=== PATIENT | female | born 1970 | race Caucasian/White ===

== ENCOUNTER → 2016-04-21 | Outpatient (CLI) | payer MEDICARE ==
[~2016-04-21] MED LIST: CYTO25TA PO; EFFE150C PO; IBUP600T26 PO; LORT5TAB PO; NORC5TAB PO; PRIL20CA9 PO; SYNT175T2 PO; VENL150C43 PO; tylenol OR
== END ==
LOC: M RAD 07:10
PROVIDERS: ATTEND Family Medicine
DX: Z12.31 Encounter for screening mammogram for malignant neoplasm of breast (principal); F17.200 Nicotine dependence, unspecified, uncomplicated; Z53.8 Procedure and treatment not carried out for other reasons

== ENCOUNTER → 2016-05-04 | Outpatient (CLI) | payer MEDICARE ==
--- NOTE | 2016-05-04 15:57 | REPMRS ---
Patient History The patient states she had a clinical breast exam in Patient is postmenopausal and has history of other cancer at age 44. Family history of ovarian cancer in sister under age 50 and breast cancer in mother at age 50 or over. Taking unspecified hormones for 1 month. Digital Woman Screen Mammo: May 04, 2016 - Exam #: [id number] Bilateral CC and MLO view(s) were taken. Technologist: Rosa Rivera, Technologist Prior study comparison: March 04, 2015, digital woman screen mammo performed at [facility]. March 01, 2011, digital bilateral screening mammo performed at [facility]. FINDINGS: There are scattered fibroglandular densities. There has been no change in the appearance of the mammogram from the prior studies. There is a mild amount of scattered fibroglandular density which is fairly symmetric. There is no interval development of dominant mass, architectural distortion, or clustered microcalcification suggestive of malignancy. ASSESSMENT: BI-RADS/ACR category 1 mammogram. Negative. Recommendation Routine screening mammogram in 1 year (for women over age 40). This mammogram was interpreted with the aid of an FDA-approved computer-aided dectection system. Electronically Signed By: Serge Matthews MD 05/04/16 [id number]
== END | disposition home or self-care (01) ==
LOC: M WHC 14:34
PROVIDERS: ATTEND Family Medicine
DX: Z12.31 Encounter for screening mammogram for malignant neoplasm of breast (principal); Z78.0 Asymptomatic menopausal state; Z80.3 Family history of malignant neoplasm of breast; Z80.41 Family history of malignant neoplasm of ovary; Z92.29 Personal history of other drug therapy; Z85.9 Personal history of malignant neoplasm, unspecified

== ENCOUNTER 2016-06-15 21:48 | Emergency (ER) | payer MEDICARE ==
[~2016-06-15] VITALS: Ht 157.5 cm; Wt 87.1 kg
[2016-06-15] MEDS ORDERED: ESTR1TAB PO (22:42)
[2016-06-15] MEDS ORDERED: OMEP40CA2 PO (22:42)
[2016-06-16] MEDS ORDERED: HYDROmorphone HCL 1 MG/ML SYRINGE (J1170) IM ONE (01:15)
--- NOTE | 2016-06-16 02:00 | REPUSA ---
HISTORY: Left facial edema. COMPARISON: Not provided. TECHNIQUE: Multiple thin section helically-acquired axially-displayed and helically acquired coronall y displayed computed tomographic images of the face are obtained from the mandible through the fronta l sinuses, with images obtained at soft tissue and bone window. 2D reformatted images were performed. FINDINGS: Left perimandibular soft tissue edema and subcutaneous fat stranding. Adjacent lymphadenopathy the largest lymph node measuring 1.3 cm. Normal bony mineralization. No fractures. Normal orbits. Normal, clear paranasal sinuses. Normal oral and nasal cavities. Normal infratemporal fossa and deep parapharyngeal spaces with normal muscles of mastication. Normal parotid and submandibular glands. IMPRESSION: Left perimandibular cellulitis. Associated phlegmonous reaction. No drainable abscess formation. Adjacent lymphadenopathy. Thank you for your kind referral of this patient
[2016-06-16] MEDS ORDERED: AMPICILLIN SOD/SULBACTAM SOD 3 GM in D5W MINI-BAG PLUS 100 ML IV ONE (02:45)
[2016-06-16] MEDS ORDERED: AUGM875T27 PO (03:04)
[2016-06-16 04:12] VITALS: BP 111/88
== END 2016-06-16 04:14 | disposition home or self-care (01) ==
LOC: M ED 23:19
DX: K12.2 Cellulitis and abscess of mouth (principal); K21.9 Gastro-esophageal reflux disease without esophagitis; E03.9 Hypothyroidism, unspecified; F17.210 Nicotine dependence, cigarettes, uncomplicated; Z79.899 Other long term (current) drug therapy
CPT/HCPCS: 70486; 96372; 96374; 99282; J1170

== ENCOUNTER 2016-07-05 11:02 | Emergency (ER) | payer MEDICARE ==
[~2016-07-05] VITALS: Ht 157.5 cm; Wt 88.9 kg
[2016-07-05] MEDS ORDERED: ALBUTEROL SULFATE 2.5 MG/0.5 ML INH NEB SOLN INH ONE (12:15)
[2016-07-05 12:46] LABS: BASO % 0.4 % (0.0-1.0); EOS # 0.1 K/mm3 (0.0-0.50); EOS % 1.3 % (0.0-3.0); LARGE UNSTAINED CELL # 0.1 K/mm3 (0.0-0.4); LARGE UNSTAINED CELL % 1.5 % (0.0-4.0); LYMPH # 2.2 K/mm3 (1.5-4.5); LYMPH % 29.9 % (24.0-44.0); MEAN CORPUSCULAR HEMOGLOBIN 30.6 pg (27.0-33.0); MEAN CORPUSCULAR HGB CONC 33.9 g/dl (32.0-36.5); MEAN CORPUSCULAR VOLUME 90.3 fl (80.0-96.0); MONO # 0.4 K/mm3 (0.0-0.8); MONO % 5.3 % (0.0-5.0); NEUTROPHILS # 4.3 K/mm3 (1.8-7.7); NEUTROPHILS % 61.6 % (36.0-66.0); PLATELET COUNT, AUTOMATED 250 k/mm3 (150-450); RED CELL DISTRIBUTION WIDTH 13.1 % (11.5-14.5)
[2016-07-05 12:59] LABS: ANION GAP 7 MEQ/L (8-16); BLOOD UREA NITROGEN 13 MG/DL (7-18); CALCIUM LEVEL 9.3 MG/DL (8.5-10.1); CARBON DIOXIDE LEVEL 27 MEQ/L (21-32); CHLORIDE LEVEL 107 MEQ/L (98-107); CREATININE FOR GFR 0.81 MG/DL (0.55-1.02); GLOMERULAR FILTRATION RATE > 60.0 (>58); GLUCOSE, FASTING 92 MG/DL (70-105); POTASSIUM SERUM 3.8 MEQ/L (3.5-5.1); SODIUM LEVEL 141 MEQ/L (136-145)
[2016-07-05] MEDS ORDERED: ISOVUE-370 76% 100ML VIAL (Q9967) As Ordered ONE (13:22)
--- NOTE | 2016-07-05 13:52 | REP ---
TWO VIEW CHEST: Two views of the chest are performed and compared to a prior study of 11/12/2015. There is poor ventilation. There is mild bibasilar fibroatelectatic change without evidence of acute infiltrate. The heart is normal in size. There is tortuosity of the thoracic aorta. There are degenerative changes of the spine. IMPRESSION: No evidence of acute pulmonary disease. Signed by Flaquito Alexandra MD 07/05/2016 05:39 P
[2016-07-05] MEDS ORDERED: KETOROLAC 30 MG/ML VIAL (J1885) IV ONE (14:00)
--- NOTE | 2016-07-05 14:06 | REP ---
CT of the chest, CT pulmonary angiography: There are no emboli in the pulmonary trunk or in the central right or left pulmonary arteries. There are no emboli in the pulmonary artery lobe or segment branches. The lung bautista are clear. There are no infiltrates, effusions, or masses. There is no mediastinal or hilar adenopathy. There is no axillary adenopathy. The thoracic aorta is unremarkable. Cardiac size is normal. There is no pericardial effusion. The visualized upper abdominal structures are unremarkable. Impression: Negative CT study of the chest. There are no pulmonary emboli. There are no infiltrates, effusions, masses or nodules. Signed by Flaquito Bunch MD 07/05/2016 01:58 P
[2016-07-05 14:23] VITALS: BP 147/85
--- NOTE | 2016-07-05 21:46 | ECGEPIP ---
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
== END 2016-07-05 14:37 | disposition home or self-care (01) ==
LOC: M ED 12:42
DX: R07.89 Other chest pain (principal); R06.02 Shortness of breath; M79.7 Fibromyalgia; G43.909 Migraine, unspecified, not intractable, without status migrainosus; F17.210 Nicotine dependence, cigarettes, uncomplicated
CPT/HCPCS: 71020; 71275; 80048; 82550; 82553; 83880; 84443; 84484; 85025; 85379; 93005; 93041; 94760; 96374; 99285; G0463; Q9967

== ENCOUNTER → 2016-07-05 | Outpatient (REF) | payer MEDICARE ==
[~2016-07-05] MED LIST changes: +AUGM875T27 PO; +ESTR1TAB PO; +NORC1TAB4 PO; -NORC5TAB PO; +OMEP40CA2 PO
== END ==
LOC: M SFHCPLAZ 10:48
PROVIDERS: ATTEND Family Medicine
DX: F41.9 Anxiety disorder, unspecified (principal); Z53.8 Procedure and treatment not carried out for other reasons

== ENCOUNTER → 2016-10-06 | Outpatient (CLI) | payer MEDICARE ==
[~2016-10-06] MED LIST changes: -AUGM875T27 PO; +AUGM875T28 PO; -CYTO25TA PO; +CYTO25TA6 PO; +IBUP-1022 PO; -IBUP600T26 PO
--- NOTE | 2016-10-06 13:11 | REP ---
Clinical: Pain Technique: AP, lateral, bilateral oblique views right foot . Findings: The osseous structures and joint spaces are intact and normal. There is no evidence for acute fracture or dislocation. Moderate calcaneal heal spur. Surrounding soft tissues are unremarkable. No subcutaneous emphysema or radiodense foreign body. Impression: No acute fracture or dislocation. Signed by Ayaz Walker MD 10/06/2016 01:03 P
== END ==
LOC: M RAD 11:32
PROVIDERS: ATTEND Student in an Organized Health Care Education/Training Program
DX: M79.671 Pain in right foot (principal)
CPT/HCPCS: 73630; G0463

== ENCOUNTER → 2017-01-02 | Outpatient (REF) | payer MEDICARE ==
[2017-01-02 19:14] LABS: ANION GAP 7 MEQ/L (8-16); BLOOD UREA NITROGEN 12 MG/DL (7-18); CALCIUM LEVEL 8.5 MG/DL (8.5-10.1); CARBON DIOXIDE LEVEL 28 MEQ/L (21-32); CHLORIDE LEVEL 107 MEQ/L (98-107); CREATININE FOR GFR 0.93 MG/DL (0.55-1.02); GLOMERULAR FILTRATION RATE > 60.0 (>58); GLUCOSE, FASTING 98 MG/DL (70-105); POTASSIUM SERUM 3.9 MEQ/L (3.5-5.1); SODIUM LEVEL 142 MEQ/L (136-145)
== END ==
LOC: M SFHCPLAZ 15:50
PROVIDERS: ATTEND Family Medicine
DX: R07.89 Other chest pain (principal); E89.0 Postprocedural hypothyroidism
CPT/HCPCS: 80048; 83735; 84443; 93005; G0463

== ENCOUNTER → 2017-03-28 | Outpatient (CLI) | payer MEDICARE, MEDICAID | LOC: M RAD 11:49 | DX: M79.605 Pain in left leg (principal) | CPT/HCPCS: 93971 ==

== ENCOUNTER → 2017-04-03 | Outpatient (REF) | payer MEDICARE, MEDICAID ==
[2017-04-03 13:41] LABS: RHEUMATOID FACTOR QUANT < 10.0 IU/ML (0-15.0)
== END ==
LOC: M SFHCPLAZ 11:09
DX: M19.041 Primary osteoarthritis, right hand (principal)
CPT/HCPCS: 36415

== ENCOUNTER → 2017-04-13 | Outpatient (CLI) | payer MEDICARE, MEDICAID ==
[2017-04-13 14:24] LABS: ALBUMIN 4.5 GM/DL (3.2-5.2); ALBUMIN/GLOBULIN RATIO 1.25 (1.00-1.93); ALKALINE PHOSPHATASE 110 U/L (45-117); ALT/SGPT 26 U/L (12-78); ANION GAP 8 MEQ/L (8-16); AST/SGOT 14 U/L (7-37); BILIRUBIN,DIRECT < 0.1 MG/DL (0.0-0.2); BILIRUBIN,TOTAL 0.3 MG/DL (0.2-1.0); BLOOD UREA NITROGEN 22 MG/DL (7-18); C REACTIVE PROTEIN QUANTITATIV 0.47 MG/DL (0.00-0.30); CALCIUM LEVEL 9.4 MG/DL (8.5-10.1); CARBON DIOXIDE LEVEL 29 MEQ/L (21-32); CHLORIDE LEVEL 103 MEQ/L (98-107); CHOLESTEROL LEVEL 185 MG/DL (<200); CHOLESTEROL RISK RATIO 3.557 (<5); GLOMERULAR FILTRATION RATE > 60.0 (>58); GLUCOSE, FASTING 108 MG/DL (70-105); HDL CHOLESTEROL 52 MG/DL (>40); LDL CHOLESTEROL 105.8 MG/DL (<100); NON-HDL-C 133 MG/DL; POTASSIUM SERUM 4.2 MEQ/L (3.5-5.1); SODIUM LEVEL 140 MEQ/L (136-145); TOTAL PROTEIN 8.1 GM/DL (6.4-8.2); TRIGLYCERIDES LEVEL 136 MG/DL (<150); URIC ACID 5.6 MG/DL (2.6-6.0)
[2017-04-13 14:31] LABS: ERYTHROCYTE SEDIMENTATION RATE 8 mm/hr (0-20)
[2017-04-13 15:23] LABS: BASO % 0.6 % (0.0-1.0); EOS # 0.1 10^3/uL (0.0-0.50); EOS % 1.4 % (0.0-3.0); HEMATOCRIT 45.3 % (36.0-47.0); HEMOGLOBIN 15.4 g/dl (12.0-16.0); IMMATURE GRANULOCYTE % 0.4 % (0-0); LYMPH # 1.5 10^3/uL (1.5-4.5); LYMPH % 28.8 % (24.0-44.0); MEAN CORPUSCULAR HEMOGLOBIN 30.4 pg (27.0-33.0); MEAN CORPUSCULAR VOLUME 89.5 fl (80.0-96.0); MONO # 0.6 10^3/uL (0.0-0.8); MONO % 12.2 % (0.0-5.0); NEUTROPHILS # 2.9 10^3/uL (1.8-7.7); NEUTROPHILS % 56.6 % (36.0-66.0); PLATELET COUNT, AUTOMATED 238 10^3/uL (150-450); RED BLOOD COUNT 5.06 10^6/uL (4.00-5.40); RED CELL DISTRIBUTION WIDTH 12.3 % (11.5-14.5); WHITE BLOOD COUNT 5.1 10^3/uL (4.0-10.0)
[2017-04-17 00:07] LABS: CYCLIC CITRULLINATED PEPTIDE 5 units (0-19)
[2017-04-17 00:07] LABS: ANGIOTENSIN 1 CONVERTING ENZYM 36 U/L (14-82); ANTINUCLEAR ANTIBODIES DIRECT Negative (Negative)
== END ==
LOC: M LAB 11:47
DX: M79.641 Pain in right hand (principal); M79.642 Pain in left hand; R07.81 Pleurodynia; M79.7 Fibromyalgia; Z79.899 Other long term (current) drug therapy
CPT/HCPCS: 71046

== ENCOUNTER → 2017-07-13 | Outpatient (REF) | payer MEDICARE | LOC: M SFHCPLAZ 09:53 | DX: R39.15 Urgency of urination (principal); E89.0 Postprocedural hypothyroidism | CPT/HCPCS: 84443 ==

== ENCOUNTER → 2017-07-27 | Outpatient (CLI) | payer MEDICARE ==
[2017-07-27 13:18] LABS: C REACTIVE PROTEIN QUANTITATIV < 0.30 MG/DL (0.00-0.30)
[2017-07-27 13:30] LABS: ERYTHROCYTE SEDIMENTATION RATE 7 mm/hr (0-20)
== END ==
LOC: M LAB 11:47
DX: G44.009 Cluster headache syndrome, unspecified, not intractable (principal); M35.3 Polymyalgia rheumatica
CPT/HCPCS: 86140

== ENCOUNTER → 2017-08-21 | Outpatient (REF) | payer MEDICARE ==
[2017-08-21 14:41] LABS: ANION GAP 9 MEQ/L (8-16); BLOOD UREA NITROGEN 25 MG/DL (7-18); CALCIUM LEVEL 9.3 MG/DL (8.5-10.1); CARBON DIOXIDE LEVEL 28 MEQ/L (21-32); CHLORIDE LEVEL 105 MEQ/L (98-107); CREATININE FOR GFR 1.01 MG/DL (0.55-1.30); GLOMERULAR FILTRATION RATE > 60.0 (>58); GLUCOSE, FASTING 135 MG/DL (70-100); POTASSIUM SERUM 3.6 MEQ/L (3.5-5.1); SODIUM LEVEL 142 MEQ/L (136-145)
== END ==
LOC: M SFHCPLAZ 12:36
DX: I10 Essential (primary) hypertension (principal)
CPT/HCPCS: 80048

== ENCOUNTER → 2017-12-12 | Outpatient (CLI) | payer MEDICARE | LOC: M RAD 14:54 | DX: M77.01 Medial epicondylitis, right elbow (principal) | CPT/HCPCS: 73080 ==

== ENCOUNTER → 2018-03-05 | Outpatient (REF) | payer MEDICARE | LOC: M SFHCPLAZ 14:49 | DX: E89.0 Postprocedural hypothyroidism (principal); I10 Essential (primary) hypertension; Z53.8 Procedure and treatment not carried out for other reasons ==

== ENCOUNTER → 2018-03-20 | Outpatient (REF) | payer MEDICARE ==
[~2018-03-20] MED LIST changes: -EFFE150C PO; +EFFE150C2 PO
[2018-03-20 16:23] LABS: BLOOD UREA NITROGEN 16 MG/DL (7-18); CALCIUM LEVEL 9.1 MG/DL (8.5-10.1); CARBON DIOXIDE LEVEL 30 MEQ/L (21-32); CHLORIDE LEVEL 106 MEQ/L (98-107); CREATININE FOR GFR 1.02 MG/DL (0.55-1.30); FREE T4 1.31 NG/DL (0.76-1.46); GLOMERULAR FILTRATION RATE > 60.0 (>51); GLUCOSE, FASTING 102 MG/DL (70-100); POTASSIUM SERUM 3.7 MEQ/L (3.5-5.1); SODIUM LEVEL 143 MEQ/L (136-145); THYROID STIMULATING HORMONE 0.093 uIU/ML (0.358-3.740)
== END ==
LOC: M SFHCPLAZ 14:23
PROVIDERS: ATTEND Family Medicine
DX: E89.0 Postprocedural hypothyroidism (principal); I10 Essential (primary) hypertension

== ENCOUNTER → 2018-04-16 | Outpatient (CLI) | payer MEDICARE ==
--- NOTE | 2018-04-16 16:52 | REPMRS ---
Patient History The patient states she has not had a clinical breast exam in over a year. Patient is postmenopausal and has history of thyroid cancer at age 44. Family history of breast cancer at age 63 in mother, ovarian cancer at age 47 in sister. Taking estrogen for 3 years. Took unspecified hormones for 1 month. Digital Woman Screen Mammo: April 16, 2018 - Exam #: [id number] Bilateral CC and MLO view(s) were taken. Technologist: Meaghan Dowling, Technologist Prior study comparison: May 04, 2016, digital woman screen mammo performed at [facility]. March 04, 2015, digital woman screen mammo performed at [facility]. March 01, 2011, digital bilateral screening mammo performed at [facility]. FINDINGS: There are scattered fibroglandular densities. There are multiple punctate disbursed microcalcifications again noted bilaterally. There has been no change in the appearance of the mammogram from the prior studies. There is a mild amount of scattered fibroglandular density which is fairly symmetric. There is no interval development of dominant mass, architectural distortion, or clustered microcalcification suggestive of malignancy. 3-D tomosynthesis shows no additional findings. Assessment: BI-RADS/ACR category 2 mammogram. Benign finding(s). Recommendation Routine screening mammogram of both breasts in 1 year (for women over age 40). This patient's Lifetime Breast Cancer RIsk is estimated at 15.6 %. This mammogram was interpreted with the aid of an FDA-approved computer-aided dectection system. Electronically Signed By: Serge Matthews MD 04/16/18 [id number]
== END ==
LOC: M WHC 14:01
PROVIDERS: ATTEND Internal Medicine
DX: Z12.31 Encounter for screening mammogram for malignant neoplasm of breast (principal); R92.0 Mammographic microcalcification found on diagnostic imaging of breast; Z85.850 Personal history of malignant neoplasm of thyroid; Z80.3 Family history of malignant neoplasm of breast; Z80.41 Family history of malignant neoplasm of ovary

== ENCOUNTER → 2018-04-19 | Outpatient (CLI) | payer MEDICARE ==
--- NOTE | 2018-04-19 13:18 | REP ---
Bilateral upper extremity arterial Doppler ultrasound: History: Occlusion and stenosis bilateral carotid arteries. Pain right shoulder, pain left shoulder, paresthesias, a scan. Findings: No abnormality is noted in the upper extremity arterial supply of either arm. Normal triphasic waveforms and velocities are observed. Incidental note is made to the ulnar arteries are little smaller caliber than the radial arteries. No evidence of stenosis or occlusion. Right upper extremity arterial Doppler velocity chart: Subclavian, proximal 62 cm/S Axillary 76 Proximal brachial 51 Mid brachial 53 Distal brachial 53 Proximal radial 34 Mid radial 53 Distal radial 44 Proximal ulnar 25 Mid ulnar 26 Distal ulnar 33 Left upper extremity are serial Doppler velocity chart: Subclavian 42 cm/S Axillary 52 Proximal brachial 48 Mid brachial 62 Distal brachial 37 Proximal radial 38 Mid radial 35 Distal radial 34 Proximal ulnar 23 Mid ulnar 14 Distal ulnar 18 Electronically Signed by Felipe Matthews MD 04/19/2018 01:09 P
--- NOTE | 2018-04-19 13:42 | REP ---
DUPLEX CAROTID SONOGRAPHY: HISTORY: Occlusion and stenosis of bilateral carotid arteries. FINDINGS: Antegrade flow is observed in both vertebral arteries. RIGHT CAROTID: The right common carotid artery is unremarkable on two-dimensional scanning. There is no discernible plaque in the bulb, proximal ICA or proximal ECA on two-dimensional scanning. Color flow imaging and pulsed Doppler interrogation are unremarkable on the right. There is mild diffuse intimal thickening. Velocity Chart Right Carotid: PSV EDV Right CCA 68 cm/s Right ICA 79 cm/s 25 cm/s Right ECA 61 cm/s Right ICA/CCA ratio normal 1.2. IMPRESSION: No significant plaquing. Normal waveforms and velocities. LEFT CAROTID: The left common carotid artery is unremarkable on two-dimensional scanning. There is no plaquing visible in the bulb, proximal ICA, or proximal ECA on the left side on two-dimensional scanning. Color flow and spectral Doppler interrogation are unremarkable. There is diffuse intimal thickening. Velocity Chart Left Carotid: PSV EDV Left CCA 69 cm/s Left ICA 45 cm/s 20 cm/s Left ECA 36 cm/s Left ICA/cc ratio 0.7 IMPRESSION: No discernible plaquing. 0-15% category narrowing. Normal waveforms and velocities. Electronically Signed by Felipe Matthews MD 04/19/2018 07:57 P
== END ==
LOC: M RAD 09:50
PROVIDERS: ATTEND Surgery Vascular Surgery
DX: M25.511 Pain in right shoulder (principal); M25.512 Pain in left shoulder; I65.23 Occlusion and stenosis of bilateral carotid arteries

== ENCOUNTER → 2018-06-19 | Outpatient (REF) | payer MEDICARE ==
[~2018-06-19] MED LIST changes: -NORC1TAB4 PO; +NORC1TAB7 PO
== END ==
LOC: M SFHCPLAZ 09:05
PROVIDERS: ATTEND Family Medicine
DX: F43.21 Adjustment disorder with depressed mood (principal); E89.0 Postprocedural hypothyroidism; F41.1 Generalized anxiety disorder; M79.7 Fibromyalgia
CPT/HCPCS: 36415; 84443; G0463

== ENCOUNTER → 2018-07-15 | Outpatient (CLI) | payer MEDICARE ==
--- NOTE | 2018-07-15 16:31 | REP ---
Mandibular Panorex: There is a large area of lucency in the mandibular body on the right. Multiple dental extraction as are identified. I suspect there are caries in the upper bicuspids bilaterally. Electronically Signed by Flaquito Bunch MD 07/15/2018 04:23 P
--- NOTE | 2018-07-15 16:35 | REP ---
Mandible for views: There is a large area of lucency in the body of the mandible on the right. No fracture is identified. The temporomandibular joints are grossly unremarkable. Impression: Large area of lucency in the body of the mandible on the right. Electronically Signed by Flaquito Bunch MD 07/15/2018 04:27 P
== END ==
LOC: M RAD 14:51
PROVIDERS: ATTEND Obstetrics & Gynecology
DX: K04.7 Periapical abscess without sinus (principal)
CPT/HCPCS: 70110; 70355; G0463

== ENCOUNTER → 2018-09-02 | Outpatient (CLI) | payer MEDICARE ==
--- NOTE | 2018-09-02 17:13 | REP ---
Left hip AP pelvis four views History: Left hip pain There is no acute fracture or dislocation. There is mild narrowing of the hip joint spaces. Impression: There is no acute fracture or dislocation. Electronically Signed by Júnior Alberts MD 09/02/2018 05:04 P
== END ==
LOC: M RAD 16:28
PROVIDERS: ATTEND Obstetrics & Gynecology
DX: M25.552 Pain in left hip (principal)
CPT/HCPCS: 73502; G0463

== ENCOUNTER → 2019-01-17 | Outpatient (REF) | payer MEDICARE ==
[~2019-01-17] MED LIST changes: -OMEP40CA2 PO; +OMEP40CA97 PO
== END ==
LOC: M SFHCPLAZ 10:10
PROVIDERS: ATTEND Obstetrics & Gynecology
DX: E89.0 Postprocedural hypothyroidism (principal); Z23 Encounter for immunization; F17.210 Nicotine dependence, cigarettes, uncomplicated

== ENCOUNTER → 2019-04-04 | Outpatient (CLI) | payer MEDICARE ==
[2019-04-04 12:20] LABS: BLOOD UREA NITROGEN 17 MG/DL (7-18); CALCIUM LEVEL 9.2 MG/DL (8.5-10.1); CARBON DIOXIDE LEVEL 27 MEQ/L (21-32); CHLORIDE LEVEL 107 MEQ/L (98-107); CHOLESTEROL LEVEL 216 MG/DL (<200); CHOLESTEROL RISK RATIO 3.789 (<5); CREATININE FOR GFR 1.02 MG/DL (0.55-1.30); GLOMERULAR FILTRATION RATE > 60.0 (>51); GLUCOSE, FASTING 103 MG/DL (70-100); HDL CHOLESTEROL 57 MG/DL (>40); LDL CHOLESTEROL 135 MG/DL (<100); NON-HDL-C 159 MG/DL; POTASSIUM SERUM 4.2 MEQ/L (3.5-5.1); SODIUM LEVEL 141 MEQ/L (136-145); TRIGLYCERIDES LEVEL 121 MG/DL (<150)
--- NOTE | 2019-04-04 15:01 | REP ---
Clinical: Palpable left neck mass. Technique: Real time schwab scale and color Doppler evaluation using linear high frequency transducer. Findings: Directed ultrasound examination of the left neck at the site of palpable mass corresponds to a mildly prominent jugular vein with dilated valves. A small adjacent normal appearing lymph node is also identified measuring 2.2 x 0.5 x 0.7 cm. Impression: Area of palpable mass corresponds to prominent jugular vein and adjacent lymph node. Electronically Signed by Ayaz Walker MD 04/04/2019 02:54 P
== END ==
LOC: M RAD 11:08
PROVIDERS: ATTEND Obstetrics & Gynecology
DX: Z13.1 Encounter for screening for diabetes mellitus (principal); Z13.220 Encounter for screening for lipoid disorders; E89.0 Postprocedural hypothyroidism

== ENCOUNTER → 2019-05-21 | Outpatient (CLI) | payer MEDICARE ==
--- NOTE | 2019-05-21 13:54 | REPMRS ---
Patient History The patient states she has not had a clinical breast exam in over a year. Patient is postmenopausal and has history of other cancer at age 44. Family history of breast cancer at age 63 in mother, ovarian cancer at age 47 in sister. Took estrogen for 4 years. Took unspecified hormones for 1 month. Digital Woman Screen Mammo: May 21, 2019 - Exam #: [id number] Bilateral CC and MLO view(s) were taken. Technologist: Meaghan Dowling, Technologist Prior study comparison: April 16, 2018, bilateral digital woman screen mammo performed at [facility]. May 04, 2016, digital woman screen mammo performed at [facility]. March 04, 2015, digital woman screen mammo performed at [facility]. FINDINGS: There are scattered fibroglandular densities. There are disbursed microcalcifications again noted. There is a moderate amount of residual fibroglandular tissue which is fairly symmetric. There is no interval development of dominant mass, architectural distortion, or grouped microcalcification typical of malignancy. There has been no change in the appearance of the mammogram from the prior studies. 3-D tomosynthesis shows no additional findings. Assessment: BI-RADS/ACR category 2 mammogram. Benign Findings. Recommendation Routine screening mammogram of both breasts in 1 year (for women over age 40). This patient's Lifetime Breast Cancer RIsk is estimated at 15.3 %. This mammogram was interpreted with the aid of an FDA-approved computer-aided dectection system. Electronically Signed By: Serge Matthews MD 05/21/19 1614
== END ==
LOC: M WHC 12:01
PROVIDERS: ATTEND Obstetrics & Gynecology
DX: Z12.31 Encounter for screening mammogram for malignant neoplasm of breast (principal)

== ENCOUNTER → 2019-08-20 | Outpatient (REF) | payer MEDICARE ==
[2019-08-20 13:48] LABS: ALBUMIN 4.4 GM/DL (3.2-5.2); ALT/SGPT 26 U/L (12-78); BILIRUBIN,TOTAL 0.6 MG/DL (0.2-1.0); BLOOD UREA NITROGEN 10 MG/DL (7-18); CALCIUM LEVEL 9.1 MG/DL (8.5-10.1); CARBON DIOXIDE LEVEL 29 MEQ/L (21-32); CHLORIDE LEVEL 106 MEQ/L (98-107); CREATININE FOR GFR 1.02 MG/DL (0.55-1.30); GLOMERULAR FILTRATION RATE > 60.0 (>51); GLUCOSE, FASTING 106 MG/DL (70-100); POTASSIUM SERUM 3.9 MEQ/L (3.5-5.1); SODIUM LEVEL 141 MEQ/L (136-145); TOTAL PROTEIN 7.6 GM/DL (6.4-8.2)
[2019-08-20 15:37] LABS: APPEARANCE, URINE CLEAR (CLEAR); BACTERIA, URINE AUTO NEGATIVE (NEGATIVE); BILIRUBIN, URINE AUTO NEGATIVE (NEGATIVE); BLOOD, URINE BLOOD 3+ (NEGATIVE); COLOR, URINE STRAW (YELLOW); GLUCOSE, URINE (UA) AUTO NEGATIVE (NEGATIVE); KETONE, URINE AUTO NEGATIVE (NEGATIVE); LEUKOCYTE ESTERASE, URINE AUTO 3+ (NEGATIVE); NITRITE, URINE AUTO NEGATIVE (NEGATIVE); PROTEIN, URINE AUTO NEGATIVE (NEGATIVE); RBC, URINE AUTO 3 /HPF (0-3); SPECIFIC GRAVITY URINE AUTO 1.002 (1.002-1.035); SQUAMOUS EPITHELIAL CELL UR AU 1 /HPF (0-6); UROBILINOGEN, URINE AUTO 0.2 mg/dL (0.0-2.0); WBC, URINE AUTO 17 /HPF (0-3)
== END ==
LOC: M SFHCPLAZ 10:20
PROVIDERS: ATTEND Family Medicine
DX: R31.0 Gross hematuria (principal)
CPT/HCPCS: 36415; 80053; 81001; 81002; 87086; 88108; G0463

== ENCOUNTER → 2019-09-12 | Outpatient (CLI) | payer MEDICARE ==
[~2019-09-12] MED LIST changes: +ISOVUE-370 76% 100ML VIAL As Ordered ONE
--- NOTE | 2019-09-12 09:57 | REP ---
CT ABDOMEN AND PELVIS WITH AND WITHOUT CONTRAST: (CT urogram) CT abdomen and pelvis performed prior to and following the intravenous administration of 100 mL of Isovue 370. Sagittal, coronal and 3D MIP reconstruction images are performed. Visualized lung bases demonstrate no infiltrate. The liver, spleen, adrenals and pancreas are normal in appearance. Left kidney is normal in appearance. No renal calculi are seen bilaterally and there is no hydroureteronephrosis. There is mild enlargement of the right kidney. There is diffuse perirenal inflammatory change with mild heterogeneous enhancement of the right kidney. Findings are consistent with right-sided pyelonephritis. I do not see significant adenopathy. There is no abdominal aortic aneurysm with mild atherosclerotic calcification of the intestinal abdominal aorta. There is no free air or free fluid. There is no bowel wall thickening. The appendix is normal. There is no pelvic mass. Patient has had a prior hysterectomy. The urinary bladder is mildly distended and appears grossly unremarkable. IMPRESSION: No renal, ureteral, or bladder calculus. No hydroureteronephrosis. There are findings compatible with right pyelonephritis. Electronically Signed by Flaquito Alexandra MD 09/16/2019 06:22 P
== END ==
LOC: M RAD 08:34
PROVIDERS: ATTEND Obstetrics & Gynecology
DX: R31.0 Gross hematuria (principal); R93.89 Abnormal findings on diagnostic imaging of other specified body structures
CPT/HCPCS: 74178; Q9967

== ENCOUNTER → 2019-09-15 | Outpatient (CLI) | payer MEDICARE ==
[~2019-09-15] MED LIST changes: -ISOVUE-370 76% 100ML VIAL As Ordered ONE
[2019-09-15 12:28] LABS: BASO % 0.6 % (0.0-1.0); EOS # 0.1 10^3/uL (0.0-0.5); EOS % 1.1 % (0.0-3.0); HEMATOCRIT 40.7 % (36.0-47.0); HEMOGLOBIN 13.6 g/dl (12.0-15.5); LYMPH # 1.7 10^3/uL (1.5-5.0); LYMPH % 23.7 % (24.0-44.0); MEAN CORPUSCULAR HEMOGLOBIN 32.2 pg (27.0-33.0); MEAN CORPUSCULAR HGB CONC 33.4 g/dl (32.0-36.5); MEAN CORPUSCULAR VOLUME 96.2 fl (80.0-96.0); MONO # 0.4 10^3/uL (0.0-0.8); MONO % 6.1 % (0.0-5.0); NEUTROPHILS # 4.8 10^3/uL (1.5-8.5); NEUTROPHILS % 67.9 % (36.0-66.0); PLATELET COUNT, AUTOMATED 378 10^3/uL (150-450); RED BLOOD COUNT 4.23 10^6/uL (4.00-5.40)
[2019-09-15 12:44] LABS: CALCIUM LEVEL 8.9 MG/DL (8.5-10.1); CREATININE FOR GFR 1.14 MG/DL (0.55-1.30); GLOMERULAR FILTRATION RATE 53.5 (>51); POTASSIUM SERUM 4.5 MEQ/L (3.5-5.1)
== END ==
LOC: M PLALAB 10:56
PROVIDERS: ATTEND Obstetrics & Gynecology
DX: N12 Tubulo-interstitial nephritis, not specified as acute or chronic (principal)

== ENCOUNTER → 2019-10-20 | Outpatient (REF) | payer MEDICARE ==
[2019-10-20 10:54] LABS: APPEARANCE, URINE CLEAR (CLEAR); BACTERIA, URINE AUTO NEGATIVE (NEGATIVE); BILIRUBIN, URINE AUTO NEGATIVE (NEGATIVE); BLOOD, URINE BLOOD NEGATIVE (NEGATIVE); COLOR, URINE STRAW (YELLOW); GLUCOSE, URINE (UA) AUTO NEGATIVE (NEGATIVE); KETONE, URINE AUTO NEGATIVE (NEGATIVE); LEUKOCYTE ESTERASE, URINE AUTO NEGATIVE (NEGATIVE); NITRITE, URINE AUTO NEGATIVE (NEGATIVE); PROTEIN, URINE AUTO NEGATIVE (NEGATIVE); RBC, URINE AUTO 0 /HPF (0-3); SPECIFIC GRAVITY URINE AUTO 1.002 (1.002-1.035); SQUAMOUS EPITHELIAL CELL UR AU 0 /HPF (0-6); UROBILINOGEN, URINE AUTO 0.2 mg/dL (0.0-2.0); WBC, URINE AUTO 0 /HPF (0-3)
== END ==
LOC: M SMT 10:18
PROVIDERS: ATTEND Nurse Practitioner Women's Health
DX: N12 Tubulo-interstitial nephritis, not specified as acute or chronic (principal); R31.0 Gross hematuria
CPT/HCPCS: 81001; 87086; 88108; G0463

== ENCOUNTER → 2020-06-07 | Outpatient (REF) | payer MEDICARE ==
[2020-06-07 14:06] LABS: HEMOGLOBIN 15.2 g/dl (12.0-15.5); MEAN CORPUSCULAR VOLUME 96.8 fl (80.0-96.0); PLATELET COUNT, AUTOMATED 240 10^3/uL (150-450); RED BLOOD COUNT 4.75 10^6/uL (4.00-5.40); WHITE BLOOD COUNT 8.5 10^3/uL (4.0-10.0)
[2020-06-07 15:01] LABS: ALBUMIN 4.2 GM/DL (3.2-5.2); BILIRUBIN,TOTAL 0.5 MG/DL (0.2-1.0); CALCIUM LEVEL 8.9 MG/DL (8.5-10.1); CHOLESTEROL RISK RATIO 3.464 (<5); CREATININE FOR GFR 1.14 MG/DL (0.55-1.30); GLOMERULAR FILTRATION RATE 53.3 (>51); POTASSIUM SERUM 4.6 MEQ/L (3.5-5.1); THYROID STIMULATING HORMONE 2.36 uIU/ML (0.358-3.740); TOTAL PROTEIN 7.3 GM/DL (6.4-8.2)
== END ==
LOC: M SFHCPLAZ 09:51
PROVIDERS: ATTEND Family Medicine
DX: I10 Essential (primary) hypertension (principal); E03.9 Hypothyroidism, unspecified; G25.81 Restless legs syndrome; Z13.220 Encounter for screening for lipoid disorders

== ENCOUNTER → 2020-06-07 | Outpatient (CLI) | payer MEDICARE ==
--- NOTE | 2020-06-07 09:40 | REPMRS ---
Patient History The patient states she had a clinical breast exam in 2020. Family history of breast cancer at age 63 in mother, ovarian cancer at age 47 in sister. Took estrogen for 4 years. Took unspecified hormones for 1 month. Diagnostic Bilateral Mammo: June 07, 2020 - Exam #: [id number] Bilateral CC and MLO view(s) were taken. Technologist: Olga Randolph, Technologist Prior study comparison: May 21, 2019, bilateral digital woman screen mammo performed at [facility]. April 16, 2018, bilateral digital woman screen mammo performed at [facility]. May 04, 2016, digital woman screen mammo performed at [facility]. FINDINGS: There are scattered fibroglandular densities. The Volpara volumetric breast density category is:B. There has been no change in the appearance of the mammogram from the prior studies. There is a mild amount of scattered fibroglandular density which is fairly symmetric. There is no interval development of dominant mass, architectural distortion, or grouped microcalcification suggestive of malignancy. 3-D tomosynthesis shows no additional findings. Assessment: BI-RADS/ACR category 1 mammogram. Negative Mammogram. Recommendation Routine screening mammogram of both breasts in 1 year (for women over age 40). This patient's [facility] Lifetime Breast Cancer Risk is estimated at 15.0 %. This mammogram was interpreted with the aid of an FDA-approved computer-aided dectection system. Electronically Signed By: Serge Matthews MD 06/07/20 0990
== END ==
LOC: M WHC 08:59
PROVIDERS: ATTEND Nurse Practitioner Women's Health
DX: N64.4 Mastodynia (principal); Z80.3 Family history of malignant neoplasm of breast; Z92.23 Personal history of estrogen therapy; Z92.29 Personal history of other drug therapy; I10 Essential (primary) hypertension; E03.9 Hypothyroidism, unspecified; G25.81 Restless legs syndrome; Z13.220 Encounter for screening for lipoid disorders; Z80.41 Family history of malignant neoplasm of ovary
CPT/HCPCS: 36415; 77066; 80053; 80061; 84443; 85027; G0279

== ENCOUNTER → 2020-10-26 | Outpatient (CLI) | payer MEDICARE ==
[~2020-10-26] MED LIST changes: +OMEP40CA4 PO; -OMEP40CA97 PO
--- NOTE | 2020-10-26 15:40 | REP ---
INDICATION: COUGH AND SHORTNESS OF BREATH. COMPARISON: 04/13/2017 the latest prior FINDINGS: The superior mediastinal structures are midline. The cardiac silhouette is unremarkable in size, shape, and position. The diaphragmatic surfaces of the lungs are regular, and the costophrenic angles are clear. The pulmonary bautista are clear. The imaged osseous structures are intact. IMPRESSION: There is no acute cardiopulmonary disease. There is no significant change compared to the prior exam. <Electronically signed by Gianluca Marino > 10/26/20 2019
[2020-10-26 15:58] LABS: BASO # 0.1 10^3/uL (0.0-0.2); BASO % 0.7 % (0.0-1.0); EOS # 0.1 10^3/uL (0.0-0.5); EOS % 1.7 % (0.0-3.0); HEMATOCRIT 44.3 % (36.0-47.0); HEMOGLOBIN 14.9 g/dl (12.0-15.5); LYMPH # 2.1 10^3/uL (1.5-5.0); LYMPH % 29.5 % (24.0-44.0); MEAN CORPUSCULAR HEMOGLOBIN 32.1 pg (27.0-33.0); MEAN CORPUSCULAR HGB CONC 33.6 g/dl (32.0-36.5); MEAN CORPUSCULAR VOLUME 95.5 fl (80.0-96.0); MONO # 0.5 10^3/uL (0.0-0.8); MONO % 7.6 % (2.0-8.0); NEUTROPHILS # 4.3 10^3/uL (1.5-8.5); NEUTROPHILS % 60.2 % (36.0-66.0); PLATELET COUNT, AUTOMATED 231 10^3/uL (150-450); RED BLOOD COUNT 4.64 10^6/uL (4.00-5.40); WHITE BLOOD COUNT 7.1 10^3/uL (4.0-10.0)
[2020-10-26 16:21] LABS: ALBUMIN 4.1 GM/DL (3.2-5.2); ALT/SGPT 25 U/L (12-78); BILIRUBIN,TOTAL 0.3 MG/DL (0.2-1.0); BLOOD UREA NITROGEN 16 MG/DL (7-18); CALCIUM LEVEL 9.3 MG/DL (8.5-10.1); CARBON DIOXIDE LEVEL 28 MEQ/L (21-32); CHLORIDE LEVEL 109 MEQ/L (98-107); CK-MB VALUE MASS < 1.0 NG/ML (<3.6); CPK CREATINE PHOSPHOKINASE 76 U/L (26-192); CREATININE FOR GFR 0.91 MG/DL (0.55-1.30); GLOMERULAR FILTRATION RATE > 60.0 (>51); GLUCOSE, FASTING 99 MG/DL (70-100); MAGNESIUM LEVEL 2.3 MG/DL (1.8-2.4); MB/CK RELATIVE INDEX 1.32 (< OR =4); NT-PRO BNP 32 PG/ML (<125); PHOSPHORUS LEVEL 3.5 MG/DL (2.5-4.9); POTASSIUM SERUM 4.1 MEQ/L (3.5-5.1); SODIUM LEVEL 143 MEQ/L (136-145); TOTAL PROTEIN 7.2 GM/DL (6.4-8.2); TROPONIN I < 0.02 NG/ML (< 0.10)
== END ==
LOC: M WUC 14:43
PROVIDERS: ATTEND Nurse Practitioner Family
DX: R06.02 Shortness of breath (principal); R05 Cough

== ENCOUNTER → 2020-11-03 | Outpatient (CLI) | payer MEDICARE ==
[2020-11-03 14:40] LABS: FREE T4 0.69 NG/DL (0.76-1.46); PROLACTIN 4.7 NG/ML; THYROID STIMULATING HORMONE 10.6 uIU/ML (0.358-3.740)
== END ==
LOC: M PLALAB 09:17
PROVIDERS: ATTEND Nurse Practitioner Women's Health
DX: N63.10 Unspecified lump in the right breast, unspecified quadrant (principal); N64.52 Nipple discharge; Z79.899 Other long term (current) drug therapy
CPT/HCPCS: 36415; 84146; 84439; 84443; G0463

== ENCOUNTER → 2020-11-26 | Outpatient (CLI) | payer MEDICARE ==
--- NOTE | 2020-11-26 13:30 | REP ---
INDICATION: N63.10 RT BREAST LUMP,N64.52 NILLPLE DISCHARGE; N63.10 RT BREAST LUMP,N64.52 NIPPLE DISCHARGE. COMPARISON: Comparison mammography June 07, 2020, May 21, 2019, and April 16, 2018. TECHNIQUE: Routine views of the right breast are obtained. A skin marker is affixed to the skin at the site of the palpable lump. Routine views are augmented by magnified focal spot-compression images and true mediolateral view. 3D tomography is deployed in the mediolateral projection. Targeted right breast sonography is carried out in the area the lump and in the subareolar region. This mammogram was interpreted with the aid of an FDA-approved computer-aided detection system. FINDINGS: On mammography, today's images show no dominant density at the site of the palpable lump. Scattered fibroglandular elements are seen. Right breast is unchanged in appearance. No other dominant density, architectural distortion or micro calcific grouping is appreciated. No abnormality is noted in the subareolar region or nipple. The Volpara volumetric breast density pattern is B. Targeted right breast sonography. Heterogeneous fibroglandular background echotexture is seen. There is a superficial 4 mm slightly complex cyst at the site of the palpable lump in the 12 o'clock position of the right breast, 4 cm from the nipple. No suspicious ultrasound abnormality is seen. Scanning in the subareolar region is unremarkable. IMPRESSION: BIRADS/ACR category 2 benign right breast mammographic and sonographic findings. This patient's Tyrer-Cuzick lifetime breast cancer risk assessment score is 15.0%. RECOMMENDATION: Repeat screening mammography recommended 1 year (for women over 40). Clinical follow-up is advised regarding patient's breast symptoms. The patient letter being requested is M2. <Electronically signed by Serge Matthews > 11/26/20 0057
== END ==
LOC: M WHC 10:00
PROVIDERS: ATTEND Nurse Practitioner Women's Health
DX: N63.10 Unspecified lump in the right breast, unspecified quadrant (principal); N64.52 Nipple discharge
CPT/HCPCS: 76642; 77065; G0279

== ENCOUNTER → 2021-05-09 | Outpatient (CLI) | payer MEDICARE | LOC: M PLALAB 11:14 | PROVIDERS: ATTEND Student in an Organized Health Care Education/Training Program | DX: E03.9 Hypothyroidism, unspecified (principal) ==

== ENCOUNTER → 2021-05-11 | Outpatient (CLI) | payer MEDICARE | LOC: M PLAIMG 09:57 | PROVIDERS: ATTEND Student in an Organized Health Care Education/Training Program | DX: M25.552 Pain in left hip (principal) ==

== ENCOUNTER → 2021-12-26 | Outpatient (CLI) | payer MEDICARE ==
[2021-12-26 13:50] LABS: BASO % 0.4 % (0.0-1.0); EOS # 0.1 10^3/uL (0.0-0.5); EOS % 1.3 % (0.0-3.0); HEMOGLOBIN 14.1 g/dl (12.0-15.5); LYMPH # 1.7 10^3/uL (1.5-5.0); LYMPH % 16.3 % (24.0-44.0); MEAN CORPUSCULAR HEMOGLOBIN 31.5 pg (27.0-33.0); MEAN CORPUSCULAR HGB CONC 32.8 g/dl (32.0-36.5); MEAN CORPUSCULAR VOLUME 96.2 fl (80.0-96.0); MONO # 1.2 10^3/uL (0.0-0.8); MONO % 11.6 % (2.0-8.0); NEUTROPHILS # 7.1 10^3/uL (1.5-8.5); NEUTROPHILS % 69.6 % (36.0-66.0); PLATELET COUNT, AUTOMATED 272 10^3/uL (150-450); RED BLOOD COUNT 4.47 10^6/uL (4.00-5.40); WHITE BLOOD COUNT 10.2 10^3/uL (4.0-10.0)
[2021-12-26 15:42] LABS: ALBUMIN 3.7 GM/DL (3.2-5.2); ALT/SGPT 19 U/L (12-78); BILIRUBIN,TOTAL 0.3 MG/DL (0.2-1.0); BLOOD UREA NITROGEN 12 MG/DL (7-18); CALCIUM LEVEL 9.3 MG/DL (8.5-10.1); CARBON DIOXIDE LEVEL 27 MEQ/L (21-32); CHLORIDE LEVEL 103 MEQ/L (98-107); CHOLESTEROL LEVEL 152 MG/DL (<200); CHOLESTEROL RISK RATIO 3.304 (<5); FREE T4 1.56 NG/DL (0.76-1.46); GLOMERULAR FILTRATION RATE > 60.0 (>51); GLUCOSE, FASTING 105 MG/DL (70-100); HDL CHOLESTEROL 46 MG/DL (>40); LDL CHOLESTEROL 81 MG/DL (<100); NON-HDL-C 106 MG/DL; POTASSIUM SERUM 4.1 MEQ/L (3.5-5.1); SODIUM LEVEL 137 MEQ/L (136-145); THYROID STIMULATING HORMONE 0.326 uIU/ML (0.358-3.740); TOTAL PROTEIN 7.2 GM/DL (6.4-8.2); TRIGLYCERIDES LEVEL 125 MG/DL (<150)
[2021-12-26 16:39] LABS: HEMOGLOBIN A1c 5.6 %
== END ==
LOC: M PLALAB 10:28
PROVIDERS: ATTEND Student in an Organized Health Care Education/Training Program
DX: Z00.00 Encounter for general adult medical examination without abnormal findings (principal)

== ENCOUNTER → 2022-02-07 | Outpatient (CLI) | payer MEDICARE ==
[2022-02-10 21:08] LABS: ANA (HEP2) Positive (.); ANTINUCLEAR ANTIBODIES DIRECT Negative (Negative); IgG SERUM (part of Subclasses) 967 mg/dL (586-1602); IgG Subclass 1 474 mg/dL (248-810); IgG Subclass 2 337 mg/dL (130-555); IgG Subclass 3 56 mg/dL (15-102); IgG Subclass 4 14 mg/dL (2-96); SJOGREN'S ANTI SS-A <0.2 AI (0.0-0.9); SJOGREN'S ANTI SS-B <0.2 AI (0.0-0.9); THRYOGLOBULIN ANTIBODIES (ATA) < 1.0 IU/mL (0.0-0.9); THYROGLOBULIN QUANTITATIVE < 0.1 ng/mL (1.5-38.5)
== END ==
LOC: M PLALAB 15:17
PROVIDERS: ATTEND Student in an Organized Health Care Education/Training Program
DX: R68.2 Dry mouth, unspecified (principal)

== ENCOUNTER → 2023-05-03 | Outpatient (CLI) | payer MEDICARE ==
[~2023-05-03] MED LIST changes: -EFFE150C2 PO; +EFFE150C3 PO
[2023-05-03 16:27] LABS: FREE T4 1.09 NG/DL (0.89-1.76); THYROID STIMULATING HORMONE 2.651 uIU/ML (0.55-4.78)
== END ==
LOC: M PLALAB 12:49
PROVIDERS: ATTEND Student in an Organized Health Care Education/Training Program
DX: E89.0 Postprocedural hypothyroidism (principal)

== ENCOUNTER → 2023-05-17 | Outpatient (CLI) | payer MEDICARE ==
[2023-05-17 15:40] LABS: BASO % 0.4 % (0.0-1.0); EOS # 0.3 10^3/uL (0.0-0.5); EOS % 4.3 % (0.0-3.0); LYMPH # 1.7 10^3/uL (1.5-5.0); LYMPH % 25.8 % (24.0-44.0); MEAN CORPUSCULAR HEMOGLOBIN 31.4 pg (27.0-33.0); MEAN CORPUSCULAR HGB CONC 33.3 g/dl (32.0-36.5); MEAN CORPUSCULAR VOLUME 94.1 fl (80.0-96.0); MONO # 0.6 10^3/uL (0.0-0.8); MONO % 9.4 % (2.0-8.0); NEUTROPHILS % 59.8 % (36.0-66.0); PLATELET COUNT, AUTOMATED 268 10^3/uL (150-450); RED BLOOD COUNT 4.78 10^6/uL (4.00-5.40); WHITE BLOOD COUNT 6.7 10^3/uL (4.0-10.0)
[2023-05-17 16:04] LABS: LIPASE 46 U/L (12-53)
[2023-05-17 16:06] LABS: ALBUMIN 4.5 G/DL (3.2-5.2); ALKALINE PHOSPHATASE 88 U/L (46-116); ALT/SGPT 24 U/L (7.0-40); AMYLASE 44 U/L (30-118); AST/SGOT 11 U/L (<34); BILIRUBIN,TOTAL 0.6 MG/DL (0.3-1.2); BLOOD UREA NITROGEN 18 MG/DL (9-23); CALCIUM LEVEL 9.2 MG/DL (8.5-10.1); CARBON DIOXIDE LEVEL 28 MMOL/L (20-31); CHLORIDE LEVEL 106 MMOL/L (98-107); CREATININE FOR GFR 0.86 MG/DL (0.55-1.30); GLOMERULAR FILTRATION RATE > 60.0 (>51); GLUCOSE, FASTING 121 MG/DL (60-100); IRON (FE) 93 UG/DL (50-170); POTASSIUM SERUM 4.8 MMOL/L (3.5-5.1); SODIUM LEVEL 139 MMOL/L (136-145); TOTAL PROTEIN 6.8 G/DL (5.7-8.2)
[2023-05-17 16:14] LABS: THYROID STIMULATING HORMONE 2.432 uIU/ML (0.55-4.78)
[2023-05-17 16:15] LABS: FERRITIN 91.6 NG/ML (7.3-270.7); FOLATE > 24.00 NG/ML (>5.4); VITAMIN B12 LEVEL 542 PG/ML (211-911)
== END ==
LOC: M PLAIMG 09:44
PROVIDERS: ATTEND Student in an Organized Health Care Education/Training Program
DX: G89.29 Other chronic pain (principal); D50.9 Iron deficiency anemia, unspecified; E07.9 Disorder of thyroid, unspecified

== ENCOUNTER → 2023-05-24 | Outpatient (CLI) | payer MEDICARE | LOC: M RAD 08:18 | PROVIDERS: ATTEND Student in an Organized Health Care Education/Training Program | DX: K80.50 Calculus of bile duct without cholangitis or cholecystitis without obstruction (principal) ==

== ENCOUNTER → 2023-07-18 | Outpatient (REF) | payer MEDICARE ==
[2023-07-18 18:42] LABS: CHOLESTEROL RISK RATIO 3.41 (<5); HDL CHOLESTEROL 47.1 MG/DL (>40); LDL CHOLESTEROL 87.5 MG/DL (<100); NON-HDL-C 113.9 MG/DL
== END ==
LOC: M SFHCCLAY 10:12
PROVIDERS: ATTEND Student in an Organized Health Care Education/Training Program
DX: Z13.220 Encounter for screening for lipoid disorders (principal); E78.00 Pure hypercholesterolemia, unspecified

== ENCOUNTER → 2023-07-23 | Outpatient (CLI) | payer MEDICARE | LOC: M WHC 14:41 | PROVIDERS: ATTEND Student in an Organized Health Care Education/Training Program | DX: Z12.31 Encounter for screening mammogram for malignant neoplasm of breast (principal) ==

== ENCOUNTER → 2023-10-26 | Outpatient (CLI) | payer MEDICARE | LOC: M RAD 16:25 | PROVIDERS: ATTEND Student in an Organized Health Care Education/Training Program | DX: Z12.2 Encounter for screening for malignant neoplasm of respiratory organs (principal); F17.211 Nicotine dependence, cigarettes, in remission ==

== ENCOUNTER → 2023-11-16 | Outpatient (CLI) | payer MEDICARE | LOC: M WHC 16:34 | PROVIDERS: ATTEND Student in an Organized Health Care Education/Training Program | DX: Z12.31 Encounter for screening mammogram for malignant neoplasm of breast (principal); R92.323 Mammographic fibroglandular density, bilateral breasts ==

== ENCOUNTER → 2023-11-28 | Outpatient (CLI) | payer MEDICARE ==
[~2023-11-28] MED LIST changes: +PROHANCE 279.3MG/ML 15ML VIAL ONE; +PROHANCE 279.3MG/ML 5ML VIAL ONE
== END ==
LOC: M PLAIMG 12:12
PROVIDERS: ATTEND Student in an Organized Health Care Education/Training Program
DX: G43.909 Migraine, unspecified, not intractable, without status migrainosus (principal)
CPT/HCPCS: 70553; A9576

== ENCOUNTER → 2024-01-25 | Outpatient (CLI) | payer MEDICARE ==
[~2024-01-25] MED LIST changes: -PROHANCE 279.3MG/ML 15ML VIAL ONE; -PROHANCE 279.3MG/ML 5ML VIAL ONE
== END ==
LOC: M PLAIMG 11:24
PROVIDERS: ATTEND Family Medicine
DX: M19.042 Primary osteoarthritis, left hand (principal)

== ENCOUNTER → 2024-04-07 | Outpatient (CLI) | payer MEDICARE ==
[~2024-04-07] MED LIST changes: +ISOVUE-370 76% 100ML VIAL As Ordered ONE
== END ==
LOC: M RAD 08:24
PROVIDERS: ATTEND Family Medicine
DX: R91.1 Solitary pulmonary nodule (principal)
CPT/HCPCS: 71260; Q9967

== ENCOUNTER → 2024-04-23 | Outpatient (REF) | payer MEDICARE ==
[~2024-04-23] MED LIST changes: -ISOVUE-370 76% 100ML VIAL As Ordered ONE
== END ==
LOC: M SFHCPLAZ 07:01
DX: R53.83 Other fatigue (principal)

== ENCOUNTER → 2024-06-09 | Outpatient (CLI) | payer MEDICARE ==
[2024-06-09 17:34] LABS: HEMATOCRIT 42.2 % (36.0-47.0); HEMOGLOBIN 14.2 g/dl (12.0-15.5); MEAN CORPUSCULAR HEMOGLOBIN 31.4 pg (27.0-33.0); MEAN CORPUSCULAR HGB CONC 33.6 g/dl (32.0-36.5); MEAN CORPUSCULAR VOLUME 93.4 fl (80.0-96.0); PLATELET COUNT, AUTOMATED 251 10^3/uL (150-450); RED BLOOD COUNT 4.52 10^6/uL (4.00-5.40)
[2024-06-09 17:53] LABS: BLOOD UREA NITROGEN 20 MG/DL (9-23); CALCIUM LEVEL 9.2 MG/DL (8.5-10.1); CARBON DIOXIDE LEVEL 24 MMOL/L (20-31); CHLORIDE LEVEL 109 MMOL/L (98-107); CREATININE FOR GFR 0.84 MG/DL (0.55-1.30); GLOMERULAR FILTRATION RATE > 60.0 (>51); GLUCOSE, FASTING 106 MG/DL (60-100); SODIUM LEVEL 143 MMOL/L (136-145); THYROID STIMULATING HORMONE 0.225 uIU/ML (0.55-4.78)
[2024-06-09 17:54] LABS: FREE T4 1.53 NG/DL (0.89-1.76); VITAMIN B12 LEVEL 696 PG/ML (211-911)
[2024-06-09 17:56] LABS: FOLATE 14.1 NG/ML (>5.4)
[2024-06-15 17:48] LABS: 25-HYDROXY VITAMIN D2 < 8 pg/mL; 25-HYDROXY VITAMIN D3 47 pg/mL; VITAMIN D 1 25 DIHYDROXY 47 pg/mL (18-72)
== END ==
LOC: M PLALAB 16:21
DX: R53.83 Other fatigue (principal)

== ENCOUNTER → 2024-06-09 | Outpatient (REF) | payer MEDICARE | LOC: M SFHCPLAZ 15:26 | PROVIDERS: ATTEND Student in an Organized Health Care Education/Training Program | DX: R68.89 Other general symptoms and signs (principal) ==

== ENCOUNTER → 2024-06-09 | Outpatient (CLI) | payer MEDICARE | LOC: M SLEEP HO 14:07 | DX: G47.33 Obstructive sleep apnea (adult) (pediatric) (principal) ==

== ENCOUNTER → 2024-08-12 | Outpatient (REF) | payer MEDICARE | LOC: M SFHCPLAZ 06:30 | PROVIDERS: ATTEND Student in an Organized Health Care Education/Training Program | DX: Z00.00 Encounter for general adult medical examination without abnormal findings (principal); R23.2 Flushing ==

== ENCOUNTER → 2025-02-04 | Outpatient (CLI) | payer MEDICARE ==
[~2025-02-04] MED LIST changes: -IBUP-1022 PO; +IBUP600T42 PO
[2025-02-04 11:30] LABS: PLATELET COUNT, AUTOMATED 284 10^3/uL (150-450)
[2025-02-04 11:38] LABS: ESTIMATED AVERAGE GLUCOSE 126.0 MG/DL (60-110)
[2025-02-04 12:04] LABS: ALT/SGPT 28.0 U/L (7.0-40); AST/SGOT 20.0 U/L (<34); CALCIUM LEVEL 9.2 MG/DL (8.5-10.1); CARBON DIOXIDE LEVEL 26.0 MMOL/L (20-31); CHLORIDE LEVEL 108.0 MMOL/L (98-107); CHOLESTEROL LEVEL 203.0 MG/DL (<200); CHOLESTEROL RISK RATIO 3.53 (<5); CREATININE FOR GFR 1.02 MG/DL (0.55-1.30); GLOMERULAR FILTRATION RATE 64.6 (>51); LDL CHOLESTEROL 126.4 MG/DL (<100); NON-HDL-C 145.6 MG/DL; POTASSIUM SERUM 4.9 MMOL/L (3.5-5.1); SODIUM LEVEL 143.0 MMOL/L (136-145); TRIGLYCERIDES LEVEL 96.0 MG/DL (<150)
[2025-02-10 09:07] LABS: URINE METANEPHR/CREAT RATIO 0.4 (0.0-1.0); URINE METANEPHRINES RANDOM 54.0 ug/L (Undefined); URINE NORMETANEPHRINES RANDOM 270.0 ug/L (Undefined)
[2025-02-10 13:17] LABS: METANEPHRINE PLASMA 25 pg/mL (<=57); NORMETANEPHRINE PLASMA 135 pg/mL (<=148); TOTAL FREE 160 pg/mL (<=205)
== END ==
LOC: M PLALAB 09:00 → M LAB 09:00
DX: Z00.00 Encounter for general adult medical examination without abnormal findings (principal); R23.2 Flushing; Z79.899 Other long term (current) drug therapy

== ENCOUNTER → 2025-02-04 | Outpatient (CLI) | payer MEDICARE | LOC: M RAD 19:09 | PROVIDERS: ATTEND Family Medicine | DX: R51.9 Headache, unspecified (principal) ==

== ENCOUNTER → 2025-02-20 | Outpatient (REF) | payer MEDICARE | LOC: M SFHCPLAZ 20:39 | DX: E89.0 Postprocedural hypothyroidism (principal) ==

== ENCOUNTER → 2025-03-02 | Outpatient (CLI) | payer MEDICARE ==
[2025-03-02 08:09] LABS: FREE T4 1.14 NG/DL (0.89-1.76)
== END ==
LOC: M RAD 06:43
DX: R51.9 Headache, unspecified (principal); E07.9 Disorder of thyroid, unspecified

== ENCOUNTER → 2025-03-17 | Outpatient (REF) | payer MEDICARE | LOC: M SFHCPLAZ 15:38 | PROVIDERS: ATTEND Family Medicine | DX: Z53.9 Procedure and treatment not carried out, unspecified reason (principal) ==

== ENCOUNTER → 2025-03-17 | Outpatient (CLI) | payer MEDICARE ==
[2025-03-17 18:41] LABS: PLATELET COUNT, AUTOMATED 288 10^3/uL (150-450)
== END ==
LOC: M PLALAB 16:09
DX: M17.12 Unilateral primary osteoarthritis, left knee (principal); M25.562 Pain in left knee